=== PATIENT | male | born 1985 | race Two or more races ===

== ENCOUNTER 2020-05-13 09:34 | Day surgery (SDC) | payer BC ==
[~2020-05-13] VITALS: Ht 177.8 cm; Wt 73.9 kg
[~2020-05-13 09:34] MED LIST: AMOX500; Depo-Testos200 MG/ML IM; HYDACE10 PO; PRED20 PO
--- NOTE | 2020-05-13 11:19 | NUR ---
05/13/20 1119 CHRISTY VANG PATIENT TO RECLINER WITH STAND BY ASSIST- VSS - BRADYCARDIA AT 50BPM AT REST. DENIES DIZZINESS, LIGHTHEADEDNESS. PATIENT DENIES PAIN, NAUSEA AT THIS TIME. TO BEDSIDE. TOLERATING SIPS OF CLEAR LIQUIDS.
== END 2020-05-13 12:07 | disposition home or self-care (01) ==
LOC: ORSCSDS 09:34
PROVIDERS: Orthopaedic Surgery
PROC: 0LB50ZZ Excision of Right Lower Arm and Wrist Tendon, Open Approach (ICD-10-PCS; principal; 2020-05-13 10:45)
DX: M67.431 Ganglion, right wrist (principal); Z79.899 Other long term (current) drug therapy
CPT/HCPCS: A9270-GY; J0171; J0690; J1100; J1885; J2250; J2405; J2704; J3010; J7120